=== PATIENT | female | born 2000 | race Caucasian/White ===

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

== ENCOUNTER 2019-04-11 22:02 | Emergency (ER) | payer OTHER ==
[~2019-04-11] VITALS: Ht 172.7 cm; Wt 86.2 kg
[~2019-04-11 22:02] MED LIST: LAMO100 PO; MUCINEX D ER 61 EACH PO; ONDA4ODT MM; Seroquel50 MG PO
[2019-04-11] MEDS ORDERED: Augmentin 875-1 EACH PO (23:15)
[2019-04-11] MEDS ORDERED: NAPR550 PO (23:30)
[2019-04-11] MEDS ORDERED: TRAZ150T57 PO (23:30)
== END 2019-04-11 23:30 | disposition home or self-care (01) ==
LOC: ER 22:02
DX: L03.032 Cellulitis of left toe (principal); L60.0 Ingrowing nail; F32.9 Major depressive disorder, single episode, unspecified; F41.9 Anxiety disorder, unspecified; Z79.899 Other long term (current) drug therapy
CPT/HCPCS: 99283